=== PATIENT | female | born 1980 | race Caucasian/White ===

== ENCOUNTER 2016-08-17 13:54 | Emergency (ER) | payer BC ==
[~2016-08-17] VITALS: Ht 167.6 cm; Wt 120.6 kg
[~2016-08-17 13:54] MED LIST: BUSP30TA; CARB200C; ETHI1TAB5; GEMF600T3; METF750T
[2016-08-17] MEDS ORDERED: SODIUM CHLORIDE FLUSH 10ML SYR IVF ONE (14:30)
[2016-08-17] MEDS ORDERED: KETOROLAC 30 MG/1 ML IVPush ONE (14:30)
[2016-08-17] MEDS ORDERED: PROCHLORPERAZINE 5 MG/ML, 2ML IVPush ONE (14:30)
[2016-08-17] MEDS ORDERED: SODIUM CHLORIDE 0.9% 1,000ML IVBOLUS ONE (14:30)
[2016-08-17] MEDS ORDERED: DIPHENHYDRAMINE 50 MG/ML, 1ML IVPush ONE (14:30)
[2016-08-17] MEDS ORDERED: KETOROLAC 30 MG/1 ML ONE (14:40)
[2016-08-17] MEDS ORDERED: DIPHENHYDRAMINE 50 MG/ML, 1ML ONE (14:40)
[2016-08-17] MEDS ORDERED: PROCHLORPERAZINE 5 MG/ML, 2ML ONE (14:41)
[2016-08-17 14:59] LABS: BLOOD UREA NITROGEN 14 mg/dL (7-18)
[2016-08-17] MEDS ORDERED: HYDROmorphone 1 MG/ML, 1ML IV ONE (15:30)
[2016-08-17] MEDS ORDERED: VARE1TAB21 PO (15:30)
[2016-08-17 16:22] VITALS: BP 100/47
== END 2016-08-17 16:23 | disposition home or self-care (01) ==
LOC: ED 16:17
DX: G44.221 Chronic tension-type headache, intractable (principal); Z88.1 Allergy status to other antibiotic agents
CPT/HCPCS: 36415; 70450; 80048; 82040; 85025; 96361; 96374; 96375; 99285; J0780; J1200; J1885; J7030

== ENCOUNTER 2016-10-22 19:58 | Emergency (ER) | payer BC ==
[~2016-10-22] VITALS: Ht 165.1 cm; Wt 119.9 kg
[~2016-10-22 19:58] MED LIST changes: +VARE1TAB21 PO
[2016-10-22 20:00] VITALS: BP 132/82
[2016-10-22] MEDS ORDERED: BACITRACIN ZINC OINT 500U/GM, 0.9 GM ONE (20:29)
[2016-10-22] MEDS ORDERED: DIPH,PERTUSS(ACELL),TET VAC/PF 0.5 ML IM-VACC ONE ×2 (20:30→20:33)
== END 2016-10-22 21:01 | disposition home or self-care (01) ==
LOC: ED 20:55
DX: S51.831A Puncture wound without foreign body of right forearm, initial encounter (principal); X58.XXXA Exposure to other specified factors, initial encounter; Y93.89 Activity, other specified; Y99.8 Other external cause status; Y92.009 Unspecified place in unspecified non-institutional (private) residence as the place of occurrence of the external cause; F17.210 Nicotine dependence, cigarettes, uncomplicated
CPT/HCPCS: 90471; 90715

== ENCOUNTER → 2016-11-26 | Outpatient (CLI) | payer BC | END | disposition home or self-care (01) | LOC: RAD 10:28 | PROVIDERS: ATTEND Obstetrics & Gynecology | DX: N83.201 Unspecified ovarian cyst, right side (principal) | CPT/HCPCS: 93975 ==

== ENCOUNTER → 2017-05-13 | Outpatient (CLI) | payer BC ==
[~2017-05-13] MED LIST changes: +ACET650S21 PO
[2017-05-13 09:36] LABS: BASOPHILS # (AUTO) 0.04 x10^3/uL (0-0.1); BASOPHILS % (AUTO) 1 % (0-1); EOSINOPHILS # (AUTO) 0.27 x10^3/uL (0-0.4); EOSINOPHILS % (AUTO) 3 % (1-7); LYMPHOCYTES # (AUTO) 2.96 x10^3/uL (1-3.4); LYMPHOCYTES % (AUTO) 31 % (22-44); MD NO; MEAN CORPUSCULAR HEMOGLOBIN 30.7 pg (27.0-34.8); MEAN CORPUSCULAR HGB CONC 33.9 g/dL (32.4-35.8); MEAN CORPUSCULAR VOLUME 90.3 fL (80-100); MEAN PLATELET VOLUME 9.3 fL (7.4-10.4); MONOCYTES # (AUTO) 0.58 x10^3/uL (0.2-0.8); MONOCYTES % (AUTO) 6 % (2-9); NEUTROPHILS % (AUTO) 60 % (42-75); PLATELET COUNT 256 x10^3/uL (130-400); RED CELL DISTRIBUTION WIDTH 14.4 % (9.6-15.2)
[2017-05-13 09:44] LABS: ANION GAP 7 mmol/L (5-15); CALCIUM 8.6 mg/dL (8.5-10.1); CHLORIDE 109 mmol/L (98-107); CREATININE 1.03 mg/dL (0.55-1.02)
[2017-05-13 09:51] LABS: CULTURE INDICATED? YES; MICROSCOPIC INDICATED
== END | disposition home or self-care (01) ==
LOC: STAR 08:31
PROVIDERS: ATTEND Obstetrics & Gynecology Gynecology
DX: Z01.818 Encounter for other preprocedural examination (principal); N94.6 Dysmenorrhea, unspecified; N92.0 Excessive and frequent menstruation with regular cycle
CPT/HCPCS: 36415; 80048; 81001; 84703; 85025; 87086

== ENCOUNTER 2017-05-21 05:55 | Observation (INO) | payer BC ==
[2017-05-13 09:18] VITALS: BP 110/70
[~2017-05-21] VITALS: Ht 167.6 cm; Wt 123.0 kg
[2017-05-21] MEDS ORDERED: LIDOCAINE/PF 1%-EPI 1:200K, 30 ML ONE ×2 (06:35→07:20)
[2017-05-21] MEDS ORDERED: FUROSEMIDE 20 MG/2 ML ONE (06:35)
[2017-05-21] MEDS ORDERED: INDIGO CARMINE 0.8%, 5ML ONE (06:35)
[2017-05-21] MEDS ORDERED: LACTATED RINGERS 1,000 ML IV SCH (06:42)
[2017-05-21 07:07] LABS: HCG UR SG 1.017 (1.003-1.030)
[2017-05-21] MEDS ORDERED: ROCURONIUM 10 MG/ML,10ML ONE (07:11)
[2017-05-21] MEDS ORDERED: LIDOCAINE-MPF 2% ,5ML ONE (07:11)
[2017-05-21] MEDS ORDERED: PROPOFOL 10 MG/ML, 20ML ONE (07:11)
[2017-05-21] MEDS ORDERED: METRONIDAZOLE PMX 500MG/100ML 100 ML ONE (07:35)
[2017-05-21] MEDS ORDERED: FENTANYL PF 100 MCG/2ML ONE (07:39)
[2017-05-21] MEDS ORDERED: HYDROmorphone 2 MG/ML, 1ML ONE (08:08)
[2017-05-21] MEDS ORDERED: DEXAMETHASONE 4 MG/ML, 1ML ONE ×2 (08:10)
[2017-05-21] MEDS ORDERED: ONDANSETRON 2MG/ML, 2ML ONE (08:11)
[2017-05-21] MEDS ORDERED: LIDOCAINE GEL 2%, 5ML ONE (08:18)
[2017-05-21] MEDS ORDERED: MEPERIDINE/PF 25MG/0.5ML IVPush PRN (08:30)
[2017-05-21] MEDS ORDERED: OXYcodone 5 MG/5 ML ORAL.SOL UDC PO PRN (08:30)
[2017-05-21] MEDS ORDERED: FENTANYL PF 100 MCG/2ML IV PRN (08:30)
[2017-05-21] MEDS ORDERED: ACETAMINOPHEN 325 MG TABLET PO PRN (08:30)
[2017-05-21] MEDS ORDERED: ONDANSETRON 2MG/ML, 2ML IVPush PRN ×2 (08:30→14:00)
[2017-05-21] MEDS ORDERED: morphine SULFATE 10 MG/ML, 1ML IV PRN (08:30)
[2017-05-21] MEDS ORDERED: HYDROcodone/APAP 7.5-325MG/15ML UDC PO PRN (08:30)
[2017-05-21] MEDS ORDERED: GLYCOPYRROLATE 0.2MG/1ML, 5ML ONE (08:36)
[2017-05-21] MEDS ORDERED: NEOSTIGMINE 1 MG/ML, 10ML ONE (08:36)
[2017-05-21] MEDS ORDERED: KETOROLAC 30 MG/1 ML ONE (08:39)
[2017-05-21] MEDS ORDERED: ENOXAPARIN 40 MG/0.4 ML SQ ONE (13:00)
[2017-05-21] MEDS ORDERED: OXYcodone/APAP 7.5/325MG TABLET PO PRN (13:30)
[2017-05-21] MEDS: OXYcodone/APAP 7.5/325MG TABLET PO PRN ×4 (13:35→22:16)
[2017-05-21] MEDS ORDERED: DIPHENHYDRAMINE 50 MG/ML, 1ML IVPush PRN (14:00)
[2017-05-21] MEDS: LACTATED RINGERS 1,000 ML IV SCH ×2 (15:27→22:06)
[2017-05-21 16:07] VITALS: BP 144/76
[2017-05-21 19:38] VITALS: BP 110/68
[2017-05-22 00:11] VITALS: BP 114/72
[2017-05-22] MEDS: OXYcodone/APAP 7.5/325MG TABLET PO PRN ×2 (02:30→06:44)
[2017-05-22 04:35] VITALS: BP 111/68
[2017-05-22] MEDS: LACTATED RINGERS 1,000 ML IV SCH (06:34)
[2017-05-22 07:36] VITALS: BP 119/73
[2017-05-22] MEDS ORDERED: OXYC1TAB8 PO (09:00)
[2017-05-22] MEDS ORDERED: ENOXAPARIN 30 MG/0.3 ML SQ SCH (09:00)
[2017-05-22] MEDS ORDERED: ENOX40SY4 SQ (09:00)
[2017-05-22] MEDS ORDERED: ENOXAPARIN 40 MG/0.4 ML SQ SCH (10:00)
== END 2017-05-22 09:45 | disposition home or self-care (01) ==
LOC: OUT 05:55 → 4NOR 15:09 → OUT 20:50
PROVIDERS: ADMIT Obstetrics & Gynecology Gynecology; ATTEND Obstetrics & Gynecology Gynecology
DX: N92.1 Excessive and frequent menstruation with irregular cycle (principal); N94.5 Secondary dysmenorrhea; N81.5 Vaginal enterocele
CPT/HCPCS: 36415; 52000; 58260; 81025; 85014; 88307; 96372; G0378; J1100; J1170; J1650; J1885; J2405; J2704; J2710; J3010; J3490; J7120; J1940

== ENCOUNTER 2018-04-07 23:44 | Emergency (ER) | payer BC, MEDICAID ==
[~2018-04-07 23:44] MED LIST changes: +ENOX40SY4 SQ; -GEMF600T3; +GEMF600T8; +OXYC1TAB8 PO
[2018-04-07 23:47] VITALS: BP 127/88
--- NOTE | 2018-04-07 23:53 | NUR ---
TASK RN: Pt ambulated to room with associate professor of pathology.
[2018-04-08 00:51] LABS: BASOPHILS # (AUTO) 0.11 x10^3/uL (0-0.1); BASOPHILS % (AUTO) 1 % (0-1); EOSINOPHILS # (AUTO) 0.23 x10^3/uL (0-0.4); EOSINOPHILS % (AUTO) 2 % (1-7); LYMPHOCYTES # (AUTO) 4.64 x10^3/uL (1-3.4); LYMPHOCYTES % (AUTO) 42 % (22-44); MD NO; MEAN CORPUSCULAR HGB CONC 34.6 g/dL (32.4-35.8); MEAN CORPUSCULAR VOLUME 92.3 fL (80-100); MONOCYTES # (AUTO) 0.69 x10^3/uL (0.2-0.8); MONOCYTES % (AUTO) 6 % (2-9); NEUTROPHILS # (AUTO) 5.35 x10^3/uL (1.8-6.8); NEUTROPHILS % (AUTO) 49 % (42-75); PLATELET COUNT 253 x10^3/uL (130-400); RED CELL DISTRIBUTION WIDTH 14.1 % (9.6-15.2)
[2018-04-08] MEDS ORDERED: IBUPROFEN 200 MG TABLET ONE (00:59)
[2018-04-08] MEDS ORDERED: IBUPROFEN 200 MG TABLET PO ONE (01:00)
[2018-04-08 01:03] LABS: ALBUMIN 3.2 g/dL (3.4-5.0); ANION GAP 7 mmol/L (5-15); CALCIUM 8.2 mg/dL (8.5-10.1); CHLORIDE 109 mmol/L (98-107); CREATININE 1.14 mg/dL (0.55-1.02)
[2018-04-08 01:07] LABS: TROPONIN I < 0.015 ng/mL (0.000-0.045)
--- NOTE | 2018-04-08 01:23 | NUR ---
RECEIVED REPORT FROM GARRICK KONG. PT UP FOR RECHECK ALL ORDER TESTS HAVE RESULTED.
--- NOTE | 2018-04-08 01:33 | NUR ---
PT RESTING IN BED WITH EYES CLOSED. NO STATED NEEDS AT THIS TIME.
== END 2018-04-08 01:58 | disposition home or self-care (01) ==
LOC: ED 04-08 01:52
DX: R05 Cough (principal); Z90.710 Acquired absence of both cervix and uterus; F17.200 Nicotine dependence, unspecified, uncomplicated
CPT/HCPCS: 36415; 71046; 80048; 82040; 84484; 84703; 85025; 93005; 99284

== ENCOUNTER 2018-04-15 12:12 | Emergency (ER) | payer MEDICAID ==
[~2018-04-15] VITALS: Ht 165.1 cm; Wt 118.6 kg
[2018-04-15 12:27] VITALS: BP 123/79
[2018-04-15 13:19] LABS: RAPID INFLUENZA A Negative (Negative); RAPID INFLUENZA B Negative (Negative)
== END 2018-04-15 13:29 | disposition home or self-care (01) ==
LOC: ED 13:15
DX: J06.9 Acute upper respiratory infection, unspecified (principal); J02.9 Acute pharyngitis, unspecified; Z90.710 Acquired absence of both cervix and uterus; Z88.1 Allergy status to other antibiotic agents
CPT/HCPCS: 71046; 87081; 87147; 87400; 87880; 99284

== ENCOUNTER 2018-04-30 21:43 | Emergency (ER) | payer MEDICAID ==
[~2018-04-30] VITALS: Ht 165.1 cm; Wt 119.0 kg
[2018-04-30 21:45] VITALS: BP 134/83
--- NOTE | 2018-04-30 21:56 | NUR ---
Taylor POLANCO, at bedside to evaluate pt.
== END 2018-04-30 22:11 | disposition home or self-care (01) ==
LOC: ED 22:03
DX: L03.114 Cellulitis of left upper limb (principal); J45.909 Unspecified asthma, uncomplicated; Z90.710 Acquired absence of both cervix and uterus; Z88.1 Allergy status to other antibiotic agents
CPT/HCPCS: 99283

== ENCOUNTER 2018-05-31 13:50 | Emergency (ER) | payer SELFPAY ==
[~2018-05-31] VITALS: Ht 162.6 cm; Wt 120.8 kg
[2018-05-31 14:10] VITALS: BP 145/80
[2018-05-31] MEDS ORDERED: SODIUM CHLORIDE FLUSH 10ML SYR IVF ONE (14:30)
[2018-05-31] MEDS ORDERED: KETOROLAC 30 MG/1 ML IVPush ONE (14:30)
[2018-05-31] MEDS ORDERED: DIPHENHYDRAMINE 50 MG/ML, 1ML IVPush ONE (14:30)
[2018-05-31] MEDS ORDERED: METOCLOPRAMIDE 5 MG/ML, 2ML IVPush ONE (14:30)
--- NOTE | 2018-05-31 15:34 | NUR ---
FROM LOBBY TO ROOM
[2018-05-31] MEDS ORDERED: METOCLOPRAMIDE 5 MG/ML, 2ML ONE (15:57)
[2018-05-31] MEDS ORDERED: ACETAMINOPHEN 325 MG TABLET ONE (15:57)
[2018-05-31] MEDS ORDERED: DIPHENHYDRAMINE 50 MG/ML, 1ML ONE (15:57)
[2018-05-31] MEDS ORDERED: KETOROLAC 30 MG/1 ML ONE (15:58)
[2018-05-31] MEDS ORDERED: ACETAMINOPHEN 325 MG TABLET PO ONE (16:00)
--- NOTE | 2018-05-31 18:48 | NUR ---
Patient/Caregiver given discharge instructions and they have confirmed that they understand the instructions. Patient ambulatory with steady gait.
== END 2018-05-31 18:49 | disposition home or self-care (01) ==
LOC: ED 17:49
DX: G43.019 Migraine without aura, intractable, without status migrainosus (principal); E66.9 Obesity, unspecified
CPT/HCPCS: 96374; 96375; 99283; J1200; J1885; J2765

== ENCOUNTER 2019-03-10 12:08 | Emergency (ER) | payer BC ==
[~2019-03-10] VITALS: Ht 165.1 cm; Wt 118.0 kg
[~2019-03-10 12:08] MED LIST changes: -CARB200C; +CARB200C5
[2019-03-10 12:32] VITALS: BP 129/74
--- NOTE | 2019-03-10 12:55 | NUR ---
PT C/O RIGHT NIPPLE PAIN AND REDNESS FOR FOUR DAYS. NO DC WAS NOTED BY PT. DR. PERRY AT BEDSIDE.
== END 2019-03-10 13:20 | disposition home or self-care (01) ==
LOC: ED 13:00
DX: N61.0 Mastitis without abscess (principal); E66.9 Obesity, unspecified; Z90.710 Acquired absence of both cervix and uterus
CPT/HCPCS: 99283

== ENCOUNTER 2020-05-27 07:37 | Emergency (ER) | payer BC, MEDICAID ==
[~2020-05-27] VITALS: Ht 165.1 cm; Wt 116.4 kg
[~2020-05-27 07:37] MED LIST changes: +GEMF-31; -GEMF600T8
--- NOTE | 2020-05-27 08:07 | NUR ---
Pt to Xray now.
[2020-05-27] MEDS ORDERED: KETOROLAC 60 MG/2 ML ONE (08:22)
[2020-05-27] MEDS ORDERED: KETOROLAC 30 MG/1 ML IM ONE (08:30)
--- NOTE | 2020-05-27 08:31 | NUR ---
Pt back to room. Medication given as ordered for pain at this time with aseptic technique. Site covered with bandaid.
--- NOTE | 2020-05-27 09:06 | NUR ---
Pain reassessment reveal good effect noted after medical laboratory technologist per pt reported pain level of 3/10 now. VS reassessed and Xray results reviewed. Chart marked for recheck.
--- NOTE | 2020-05-27 09:48 | NUR ---
Pt awaiting dish technician to apply laced wrist splint and sling and then d/c home.
[2020-05-27 10:07] VITALS: BP 125/73
== END 2020-05-27 10:09 | disposition home or self-care (01) ==
LOC: ED 10:03
DX: M75.91 Shoulder lesion, unspecified, right shoulder (principal); M25.511 Pain in right shoulder; Z88.0 Allergy status to penicillin
CPT/HCPCS: 29125; 73030; 96372; 99283; J1885